=== PATIENT | male | born 1940 | race African-American/Black ===

== ENCOUNTER 2017-11-01 10:53 | Day surgery (SDC) | payer OTHER ==
[2017-10-31 14:05] VITALS: BMI 26.6
[2017-11-01] MEDS ORDERED: LIDOCAINE HCL/PF 2% SDV 5ML VIAL ONE (12:48)
[2017-11-01] MEDS ORDERED: MIDAZOLAM HCL 2 MG/2 ML SINGLE DOSE VIAL ONE (12:48)
[2017-11-01] MEDS ORDERED: ceFAZolin SODIUM 1 GM VIAL ONE (12:48)
[2017-11-01] MEDS ORDERED: DEXAMETHASONE SOD PHOSPHATE 4 MG/1 ML VIAL ONE (12:48)
[2017-11-01] MEDS ORDERED: KETOROLAC TROMETHAMINE 30 MG/1 ML VIAL ONE (12:48)
[2017-11-01] MEDS ORDERED: PROPOFOL 20 ML ONE ×2 (12:48)
[2017-11-01] MEDS ORDERED: SODIUM CHLORIDE 0.9% P/F 10 ML VIAL IJ ONE (12:51)
[2017-11-01] MEDS ORDERED: ceFAZolin SODIUM 1 GM VIAL IVPB ONE (12:55)
[2017-11-01] MEDS ORDERED: ePHEDrine SULFATE 50 MG/1 ML AMPULE ONE (13:12)
[2017-11-01] MEDS ORDERED: ONDANSETRON 4 MG/2 ML VIAL IVPUSH PRN (13:15)
[2017-11-01] MEDS ORDERED: LACTATED RINGERS SOLUTION 1,000 ML IV SCH (13:15)
--- NOTE | 2017-11-01 13:37 | OP ---
Operative Note - Note: Operative Date: 11/01/17 Pre-Operative Diagnosis: bph with luts hematuria poss. bladder lesion Operation: tuvp/turp Findings: bleeding, obstructing prostate gland with gr. 2-3 bladder trabeculation Post-Operative Diagnosis: Same as Pre-op Surgeon: Anna Hanks Anesthesia: General Specimens Removed: prostate chips Estimated Blood Loss (mls): 20 Drains & Tubes with Location: 24f 30 cc brennan Drains, Volume Out (mls): 0 Blood Volume Replaced (mls): 0 Fluid Volume Replaced (mls): 0 Operative Report Dictated: Yes
--- NOTE | 2017-11-01 14:09 | HP ---
DATE OF ADMISSION: 11/01/2017 HISTORY OF PRESENT ILLNESS: Patient is a 77-year-old male with history of bladder tumor. He underwent a cystoscopy, and a lesion in the bladder was found. He does have history of prostatism including frequency, urgency, and nocturia. He also has history of microscopic hematuria. He has had a right hip replacement as well as hernia repair. Patient denies alcohol or tobacco use. He denies any history of diabetes or hypertension. He denies any asthma or COPD. He does take baby aspirin a day. Also, has undergone radiation seed implantation for prostate cancer. Patient presently is on bicalutamide 50 mg daily and Flomax 0.4 mg daily. PHYSICAL EXAMINATION: General: Revealed a well-developed adult male in no apparent distress. Abdomen: Soft. No CVA tenderness is noted. Genitalia are atraumatic. Prostate 2+, smooth, benign, nontender. Extremities: Revealed full range of motion with no cyanosis, clubbing, or edema. Vital signs: Patients BMI is 27, blood pressure 140/80, O2 saturation 99. PLAN: Procedure has been explained fully to patient, and he will undergo a cystoscopy with transurethral resection of the bladder lesions. Asif [id number]
[2017-11-01] MEDS: hydrALAZINE HCL 20 MG/ML VIAL IVPUSH ONE ×2 (15:05→15:20)
[2017-11-01] MEDS ORDERED: hydrALAZINE HCL 20 MG/ML VIAL ONE (15:09)
[2017-11-01 18:14] VITALS: BP 148/78; PULSE 66; TEMP 97.8
--- NOTE | 2017-11-05 17:12 | PATH ---
Surgical Pathology Report Patient Name: EMILEE ROSARIO [facility]. Rec. #: [id number] /Age/Gender: 1940 (Age: 77) / M Account: [id number] Location: [facility] SURGICAL Taken: 11/01/2017 Received: 11/04/2017 Reported: 11/05/2017 Physicians: Anna Hanks M.D. Specimen(s) Received BLADDER TUMOR Clinical History Bladder tumor Final Diagnosis PROSTATE AND BLADDER, TRANSURETHRAL RESECTION/VAPORIZATION OF PROSTATE: BENIGN PROSTATIC TISSUE WITH STROMAL HYPERPLASIA. FOCALLY DENUDED BLADDER MUCOSA WITH MILD CHRONIC INFLAMMATION AND REACTIVE CHANGES. Electronically Signed Dyan Abarca M.D. Gross Description Received in formalin labeled "bladder tumor," is a 4.0 x 2.5 x 0.3 cm aggregate of multiple barger portions of rubbery tissue, consistent with bladder/prostate tissue. The specimen is entirely submitted in 2 cassettes. /11/04/2017 saudi11/04/2017
--- NOTE | 2017-11-05 18:55 | PATH ---
Cytology Non-Gynecological Report Patient Name: EMILEE ROSARIO [facility]. Rec. #: [id number] /Age/Gender: 1940 (Age: 77) / M Account: [id number] Location: [facility] SURGICAL Taken: 11/01/2017 Received: 11/04/2017 Reported: 11/05/2017 Physicians: Anna Hanks M.D. Specimen(s) Received URINE VOIDED Clinical History Urine Final Diagnosis URINE FOR CYTOLOGY: SATISFACTORY FOR EVALUATION. NEGATIVE FOR HIGH GRADE UROTHELIAL CARCINOMA. SCATTERED UROTHELIAL CELLS AND SQUAMOUS EPITHELIAL CELLS PRESENT. Electronically Signed Dyan Abarca M.D. Gross Description Approximately 100 cc of yellow fluid received fresh. Two cytofunnels prepared.
--- NOTE | 2017-12-28 07:45 | OP ---
DATE OF OPERATION: 11/01/2017 SURGEON: Anna Hanks MD PREOPERATIVE DIAGNOSIS: Obstructive uropathy, benign prostatic hypertrophy, and hematuria. OPERATIVE PROCEDURE: Cystourethroscopy, transurethral vaporization, and transurethral resection of prostate. ANESTHESIA: General. DESCRIPTION OF PROCEDURE: Under above stated anesthesia, patient was prepped and draped in the usual sterile manner. He was placed in the dorsal lithotomy position. Cystoscopy performed under direct vision revealed a normal anterior urethra. Prostatic urethra revealed trilobar hypertrophy of the prostate. There was lateral lobe kissing. There were also elements of hemorrhagic prostatitis. The verumontanum was within normal limits. The bladder was entered. Urine was collected for culture and sensitivity. Inspection of the bladder revealed a grade 2 trabeculation. No lesions or calculi were seen. Ureteral orifices were within normal limits with efflux of clear urine. The bladder was emptied. The monopolar resectoscope was inserted. The prostate was resected commencing at the 6 o'clock position of the right lateral lobe. This was carried on up to the 12 o'clock position. The same thing was done to the left lateral lobe. Lastly, the median lobe was resected. Hemostasis was secured with electrocoagulation. Prostate chips were evacuated with an Machine Talker evacuator. A Vaportrode was then introduced, and excess prostate tissue was vaporized. Again, no active bleeding was noted. Therefore, the bladder was emptied. The scope was removed. The 24-Portuguese 30-mL Ruth was inserted. The patient tolerated the procedure well. He returned to the recovery room in good condition. Asif [id number]
== END 2017-11-01 18:15 | disposition home or self-care (01) ==
LOC: JASU-SURG 10:53
PROVIDERS: ATTEND Urology
PROC: 0VT08ZZ Resection of Prostate, Via Natural or Artificial Opening Endoscopic (ICD-10-PCS; principal; 2017-11-01 12:00)
PROC: 0TJB8ZZ Inspection of Bladder, Via Natural or Artificial Opening Endoscopic (ICD-10-PCS; 2017-11-01 12:00)
DX: N40.1 Benign prostatic hyperplasia with lower urinary tract symptoms (principal); N13.8 Other obstructive and reflux uropathy; R31.9 Hematuria, unspecified
CPT/HCPCS: 87252; 88108; 88305-TC; 94760

== ENCOUNTER 2023-03-30 21:12 | Emergency (ER) | payer OTHER ==
[2023-03-30] MEDS ORDERED: DEXTROSE 50%-WATER 25 GM/50 ML DISP.SYRIN ONE (21:20)
[2023-03-30 21:42] VITALS: BP 0/0; TEMP 84.2; BMI 33.9
== END 2023-03-30 23:09 | disposition expired ==
LOC: JER 21:12
PROC: 0BH17EZ Insertion of Endotracheal Airway into Trachea, Via Natural or Artificial Opening (ICD-10-PCS; principal; 2023-03-30)
PROC: 5A1221Z Performance of Cardiac Output, Continuous (ICD-10-PCS; 2023-03-30)
DX: I46.9 Cardiac arrest, cause unspecified (principal)
CPT/HCPCS: 99283-25